=== PATIENT | male | born 1965 | race Caucasian/White ===

== ENCOUNTER 2021-10-06 09:26 | Outpatient (REF) | payer BC, SELFPAY ==
--- NOTE | ~2021-10-06 | CT_ITS ---
EXAMINATION: CT PELVIS WITH CONTRAST CLINICAL INFORMATION: Inguinal pain. COMPARISON: None TECHNIQUE: Helical scanning was performed with submillimeter collimation through the pelvis with the use of oral contrast and during bolus intravenous injection of 85 mL of Omnipaque 350 intravenous contrast. Sagittal and coronal multiplanar 2-D reconstructions were obtained. This CT examination was performed using dose optimization techniques as appropriate, variously including the following: *Automated exposure control *Adjustment of mA and/or kV according to patient size (this includes techniques or standardized protocols for targeted exams where dose is matched to indication/reason for exam; i.e. extremities or head) *Use of iterative reconstruction technique DLP: 550 mGy-cm FINDINGS: Abdominal wall: Midline abdominal mesh graft suture anchors are noted. No abdominal wall hernia is visualized. No inguinal hernias noted. Visualized gastrointestinal system: The visualized colon is normal in appearance. The appendix is normal in appearance. No free intraperitoneal fluid collections identified. The sigmoid mesentery is normal in appearance. Kidneys, ureters and bladder: The kidneys and ureters are partially included in the image [id number] and demonstrate no abnormalities. The urinary bladder is physiologically distended. Prostate: Normal size 3.5 cm in AP dimension. Normal appearance of the seminal vesicles. Incidental note is made of scattered pelvic phleboliths. Lymphovascular structures: No pelvic lymphadenopathy. Minimal scattered atherosclerotic calcific plaques. Skeletal structures: Mild left and moderate posterior intervertebral disc space narrowing at L5-S1 and partially visualized L5-S1 at least mild posterior broad-based disc bulge. CT/CT pelvis w con IMPRESSION: *Midline lower abdominal mesh graft suture anchors noted. No abdominal wall hernias. No inguinal hernias. No specific findings to correlate with a history of inguinal pain. *Partially visualized L5-S1 at least mild posterior broad-based disc bulge.
[2021-10-06] MEDS: iohexoL 350 MG/ML 100 ML INFUS..BTL 85 ML IV (10:11)
== END 2021-10-06 09:27 | disposition home or self-care (01) ==
LOC: HO.CT 09:26
PROVIDERS: PCP Internal Medicine; Visit Provider Family Medicine
DX: R10.2 Pelvic and perineal pain (principal)
CPT/HCPCS: 72193; Q9967

== ENCOUNTER → 2023-04-27 07:53 | Outpatient (REF) | payer BC, SELFPAY ==
--- NOTE | 2023-04-27 07:57 | CA_ITS ---
Transthoracic Echocardiogram Patient (Last, First, Middle): Dez Griffith, Gender: Male Date of : 1965 Age: 57 Procedure Date: 04/27/2023 Procedure Type: Transthoracic Echocardiogram Location: [place] Height: 193.04 cm Weight: 97.52 kg BSA: 2.28 m2 Heart Rate: 46 bpm BP: 140 / 82 mmHg [employer] Designer: TO Referring MD: Deric Herrera MD [place] Maker: nAanda Simmons MD Symptoms: R01.1 CA MURMUR Study Quality: Adequate ECG Rhythm: Sinus Conclusions: - 1. Normal LV systolic function with LVEF of 60-65% 2. Normal cardiac valvular Dopplers next 3. Mildly dilated ascending aorta at 3.9 cm 4. Normal RV systolic pressure with mildly elevated right atrial pressures 5. No gross pericardial effusion Findings Left Ventricle Normal left ventricular size, thickness, and systolic function. The visually estimated ejection fraction is between 60-65%. Spectral Doppler is indicative of a normal filling pattern. Peak GLS is -20.3%, within normal limits. Right Ventricle Normal right ventricular cavity size and systolic function. Atria The left atrium is normal in size. There is no evidence of interatrial shunt. The right atrium is normal in size. Aortic Valve The aortic valve was not well visualized. There is no aortic valve stenosis. There is no aortic valve regurgitation. Mitral Valve Normal mitral valve structure and function. There is trace mitral valve regurgitation. There is no mitral valve stenosis. Pulmonic Valve The pulmonic valve is likely normal. Tricuspid Valve Normal tricuspid valve structure. There is trace tricuspid valve regurgitation. The right ventricular systolic pressure is normal. Mildly elevated right atrial pressure. There is no evidence of pulmonary hypertension. Great Vessels The pulmonary artery was not well visualized. There is mild dilatation of the ascending aorta measuring 3.90 cm. Venous The inferior vena cava is moderately dilated and does not collapse with inspiration. Pericardium/Pleural There is no evidence of pericardial effusion. Prior Study Comparison No prior study available for comparison. Measurements 2D Linear Measurements IVSd: 1.23 0.6-0.9/0.6-1.0 cm LVIDd: 4.42 3.9-5.3/4.2-5.9 cm LVIDd Index: 1.94 2.4-3.2/2.2-3.1 cm/m2 LVIDs: 2.59 2.0-3.6 cm LVPWd: 0.97 0.7-1.1 cm LA Diam: 3.50 2.7-3.8/3.0-4.0 cm LAIDs Index: 1.54 1.5-2.3 cm/m2 LV Mass: 211.64 67-162/88-224 g LV Mass Index: 92.83 43-95/49-115 g/m2 LVOT Diam: 2.30 3.0+(-)1.3 cm 2D Systolic Function EF 4C: 61.70 >55% EF 2C: 66.60 >55% EF BiP: 64.60 >55% Mitral Valve MV Pk E: 0.60 MV PK A: 0.43 MV Decel Time: 246.00 E/A: 1.40 E'Lateral: 9.14 E'Medial: 7.29 E/E' Med: 8.30 E/E' Lat: 6.60 PHT: 72.00 MVA PHT: 3.06 Decel [place]: 2.45 Aortic Valve AoV Pk [place]: 1.40 AoV Mn Sil[place]re: 0.94 AoV VTI: 0.38 AoV Pk Grad: 8.00 Aov Mn Grad: 4.00 RAO Cont.VTI: 3.42 LVOT LVOT Pk [place]: 1.12 LVOT Mn [place]: 0.69 LVOT VTI: 0.31 LVOT Pk Grad: 5.00 LVOT Mn Grad: 2.00 LVOT Diam: 2.30 LVOT Area: 4.15 Diastolic Function MV Pk E: 0.60 MV Pk A: 0.43 E/A: 1.40 E'Medial: 7.29 E/E' Med: 8.30 E' Laterial: 9.14 E/E' Lat: 6.60 Right Ventricle TAPSE (mm): 26.10 TVS' [place]: 11.50 Tricuspid Valve TR Pk Sil[place]: 2.51 TR Pk Grad: 25.00 RA Press: 8.00 RVSP: 33.00 Great Vessels Aorta Sinus of Valsalva: 3.49 2.0-3.[address] [place]: 2.71 1.7-3.4 cm Ao Asc: 3.90 2.1-3.4 cm Ao Arch: 2.90 Updated in Other Vendor System with Status of Final Ananda Simmons MD electronically signed on 04/27/2023 12:14:13 PM with status of Final
== END ==
LOC: HO.CARD 07:53
PROVIDERS: PCP Internal Medicine; Visit Provider Internal Medicine
DX: R01.1 Cardiac murmur, unspecified (principal)
CPT/HCPCS: 93306; 93356

== ENCOUNTER → 2023-04-27 07:57 | Outpatient (BNV) | payer BC, SELFPAY | PROVIDERS: PCP Internal Medicine; Visit Provider Internal Medicine Cardiovascular Disease | DX: R01.1 Cardiac murmur, unspecified (principal) | CPT/HCPCS: 93306 ==